=== PATIENT | female | born 2000 | race Caucasian/White ===

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

== ENCOUNTER → 2018-11-13 16:37 | Outpatient (CLI) | payer OTHER, SELFPAY ==
[2018-11-13 19:26] LABS: Chlamydia Trachomatis by PCR Negative (Negative); Neisserai gonorrhoeae by PCR Negative (Negative); Probe Check PASS; Sample Adequacy Control PASS; Specimen Processing Control PASS
== END ==
PROVIDERS: Visit Provider Obstetrics & Gynecology
DX: Z11.3 Encounter for screening for infections with a predominantly sexual mode of transmission (principal)
CPT/HCPCS: 87491; 87591

== ENCOUNTER → 2019-11-29 | Outpatient (CLI) | payer OTHER, SELFPAY ==
[2019-12-04 07:44] LABS: Chlamydia By Nucleic Acid AMP Negative (Negative)
[2019-12-04 16:03] LABS: HPV Reflexed? NOT INDICATED
[2019-12-10 22:11] LABS: Gonococcus By Nucleic Acid AMP Negative (Negative)
== END | disposition home or self-care (01) ==
LOC: LABSPEC 14:42
PROVIDERS: Visit Provider Obstetrics & Gynecology
DX: Z12.4 Encounter for screening for malignant neoplasm of cervix (principal); Z11.3 Encounter for screening for infections with a predominantly sexual mode of transmission
CPT/HCPCS: 87491; 87591; 88175; G0145

== ENCOUNTER → 2023-04-29 | Outpatient (CLI) | payer OTHER, SELFPAY ==
[2023-05-02 22:06] LABS: Chlamydia By Nucleic Acid AMP Negative (Negative); Gonococcus By Nucleic Acid AMP Negative (Negative)
[2023-05-09 22:58] LABS: HPV Reflexed? NOT INDICATED
== END | disposition home or self-care (01) ==
PROVIDERS: Referring Provider Registered Nurse; Visit Provider Registered Nurse
DX: Z34.90 Encounter for supervision of normal pregnancy, unspecified, unspecified trimester (principal)
CPT/HCPCS: 87086; 87491; 87591; 88175; G0145

== ENCOUNTER → 2023-05-24 | Outpatient (CLI) | payer OTHER, SELFPAY ==
[2023-05-24 14:55] LABS: Absolute Lymphocyte Count 2.11 X10^3/uL (0.83-4.51); Basophil# 0.02 X10^3/uL; Basophil% 0.3 % (0-1); Eosinophil# 0.03 X10^3/uL; Eosinophils% 0.4 % (0-5); Hematocrit 41.2 % (37-47); Hemoglobin 13.7 g/dL (12.0-15.0); Lymphocyte # 2.11 X10^3/ul (0.83-4.51); Lymphocyte % 31.6 % (19-41); Mean Corp Hgb Conc 33.3 g/dL (32-36); Mean Corpuscular Hgb 29.1 pg (27.0-32.0); Mean Corpuscular Volume 87.7 fL (81-99); Mean Platelet Vol. 11.2 fl (6.2-12.0); Monocyte# 0.53 X10^3/uL; Monocyte% 7.9 % (0-10); NRBC Flagged by Analyzer 0 % (0-5); Neutrophil # 3.99 X10^3/uL (2.7-7.7); Neutrophil % 59.8 % (47-70); Platelet Count 261 K/mm3 (150-450); RBC Distribution Width CV 12.4 % (11.6-14.6); RBC Distribution Width SD 39.5 fl (35.1-43.9); White Blood Count 6.7 K/mm3 (4.4-11.0)
[2023-05-24 16:11] LABS: HIV - WCH Non-Reactive (Nonreactive); Hepatitis B Surface Antigen Non-Reactive (Nonreactive); Hepatitis C Antibody Non-Reactive (Nonreactive); Rubella IgG Equiv (Nonreactive); Syphilis Antibodies Non-reactive
== END | disposition home or self-care (01) ==
LOC: LAB 13:15
PROVIDERS: Referring Provider Registered Nurse; Visit Provider Registered Nurse
DX: Z34.90 Encounter for supervision of normal pregnancy, unspecified, unspecified trimester (principal)
CPT/HCPCS: 36415; 85025; 86703; 86762; 86780; 86803; 86850; 86900; 86901; 87340

== ENCOUNTER → 2023-09-16 | Outpatient (CLI) | payer OTHER, SELFPAY ==
[2023-09-16 13:39] LABS: Absolute Lymphocyte Count 1.58 X10^3/uL (0.83-4.51); Absolute Neutrophil Count 6.1 X10^3/uL (2.0-7.7); Basophil# 0.02 X10^3/uL; Basophil% 0.2 % (0-1); Eosinophil# 0.02 X10^3/uL; Eosinophils% 0.2 % (0-5); Hematocrit 36.3 % (37-47); Lymphocyte # 1.58 X10^3/ul (0.83-4.51); Lymphocyte % 18.9 % (19-41); Mean Corp Hgb Conc 33.1 g/dL (32-36); Mean Corpuscular Hgb 30.6 pg (27.0-32.0); Mean Corpuscular Volume 92.6 fL (81-99); Mean Platelet Vol. 10.7 fl (6.2-12.0); NRBC Flagged by Analyzer 0 % (0-5); Neutrophil # 6.14 X10^3/uL (2.7-7.7); Neutrophil % 73.7 % (47-70); Platelet Count 233 K/mm3 (150-450); RBC Distribution Width CV 12.9 % (11.6-14.6); RBC Distribution Width SD 43.5 fl (35.1-43.9); Red Blood Count 3.92 M/mm3 (4.2-5.4); White Blood Count 8.3 K/mm3 (4.4-11.0)
[2023-09-16 14:01] LABS: Glucose Challenge Gest 1H 50g 149 mg/dL (70-140)
[2023-09-16 14:38] LABS: HIV - WCH Non-Reactive (Nonreactive); Syphilis Antibodies Non-reactive
== END | disposition home or self-care (01) ==
LOC: LAB 12:58
PROVIDERS: Referring Provider Nurse Practitioner Women's Health; Visit Provider Nurse Practitioner Women's Health
DX: Z34.90 Encounter for supervision of normal pregnancy, unspecified, unspecified trimester (principal); Z3A.24 24 weeks gestation of pregnancy
CPT/HCPCS: 36415; 82950; 85025; 86703; 86780

== ENCOUNTER → 2023-09-29 | Outpatient (CLI) | payer OTHER, SELFPAY ==
[2023-09-29 10:28] LABS: Bedside Glucose 78 mg/dL (74-106)
[2023-09-29 10:49] LABS: Glucose GTT-Gestation. Fasting 82 mg/dL (<105)
[2023-09-29 11:37] LABS: Glucose GTT-Gestational 1 Hr 128 mg/dL (<190)
[2023-09-29 13:23] LABS: Glucose GTT-Gestational 2 Hr 92 mg/dL (<165)
[2023-09-29 14:18] LABS: Glucose GTT-Gestational 3 Hr 57 L (<145)
== END | disposition home or self-care (01) ==
PROVIDERS: Referring Provider Nurse Practitioner Women's Health; Visit Provider Nurse Practitioner Women's Health
DX: Z13.1 Encounter for screening for diabetes mellitus (principal)
CPT/HCPCS: 36415; 82951; 82952; 82962

== ENCOUNTER → 2023-10-27 | Outpatient (CLI) | payer OTHER, SELFPAY | END | disposition home or self-care (01) | PROVIDERS: Referring Provider Advanced Practice Midwife; Visit Provider Advanced Practice Midwife | DX: B37.31 Acute candidiasis of vulva and vagina (principal) | CPT/HCPCS: 87070; 87205 ==

== ENCOUNTER → 2023-11-11 | Outpatient (CLI) | payer OTHER, SELFPAY | END | disposition home or self-care (01) | LOC: LABSPEC 17:04 | PROVIDERS: Referring Provider Registered Nurse; Visit Provider Registered Nurse | DX: Z34.02 Encounter for supervision of normal first pregnancy, second trimester (principal) | CPT/HCPCS: 87081 ==

== ENCOUNTER → 2023-11-15 | Outpatient (CLI) | payer OTHER, SELFPAY ==
--- NOTE | 2023-11-15 16:16 | US_ITS ---
STUDY: SECOND AND THIRD TRIMESTER OBSTETRICAL ULTRASOUND - LIMITED REASON FOR EXAM: Female, 23 years old oblique presentation LMP: Established due date 12/09/2023. PRIOR ULTRASOUND: No relevant prior comparison study available TECHNIQUE: Transabdominal TECHNICAL QUALITY: Adequate. FINDINGS: Single fetus is identified in the uterus in cephalic presentation. heart rate 133 bpm. Amniotic fluid index 12.93 cm. Maximum vertical pocket 6.8 cm. Placenta is anterior and appears intact. Several venous lakes noted. No previa. Cervical length not well visualized. Maternal ovaries not visualized. BIOMETRY: BPD: 9.04 cm: 36 weeks, 4 days HC: 32.57 cm: 36 weeks, 6 days AC: 34.43 cm: 38 weeks, 2 days FL: 7.11 cm: 36 weeks, 3 days Estimated weight: 3279 grams, +/- 492 grams, 81.07 percentile. US/OB Limited With Biometrics IMPRESSION: Single live intrauterine estimated gestational age 37 weeks 2 days based on composite measurements. Electronically Signed: Sima Coyle MD at 3:14 EDT ,
== END | disposition home or self-care (01) ==
LOC: OPUS 16:15 → US 16:18
PROVIDERS: Referring Provider Registered Nurse; Visit Provider Registered Nurse
DX: O32.2XX0 Maternal care for transverse and oblique lie, not applicable or unspecified (principal); Z3A.00 Weeks of gestation of pregnancy not specified
CPT/HCPCS: 76816

== ENCOUNTER 2023-12-04 03:20 | Inpatient (IN) | payer OTHER, SELFPAY ==
[2023-12-04] VITALS (23 sets, daily range): BP systolic 110–134; BP diastolic 58–83; PULSE 63–91; RESP 14–18; TEMP 36.3–37.4; O2SAT 82–99; BMI 38.9
[2023-12-04 04:11] LABS: Absolute Lymphocyte Count 2.04 X10^3/uL (0.83-4.51); Absolute Neutrophil Count 9.2 X10^3/uL (2.0-7.7); Basophil# 0.04 X10^3/uL; Basophil% 0.3 % (0-1); Eosinophil# 0.04 X10^3/uL; Eosinophils% 0.3 % (0-5); Hematocrit 38.8 % (37-47); Hemoglobin 12.7 g/dL (12.0-15.0); Lymphocyte # 2.04 X10^3/ul (0.83-4.51); Lymphocyte % 16.8 % (19-41); Mean Corp Hgb Conc 32.7 g/dL (32-36); Mean Corpuscular Hgb 30.8 pg (27.0-32.0); Mean Corpuscular Volume 94.2 fL (81-99); Mean Platelet Vol. 11.4 fl (6.2-12.0); Monocyte# 0.71 X10^3/uL; Monocyte% 5.9 % (0-10); NRBC Flagged by Analyzer 0 % (0-5); Neutrophil # 9.16 X10^3/uL (2.7-7.7); Neutrophil % 75.7 % (47-70); Platelet Count 202 K/mm3 (150-450); RBC Distribution Width CV 12.9 % (11.6-14.6); RBC Distribution Width SD 44.4 fl (35.1-43.9); Red Blood Count 4.12 M/mm3 (4.2-5.4); White Blood Count 12.1 K/mm3 (4.4-11.0)
[2023-12-04 05:09] LABS: Syphilis Antibodies Non-reactive
[2023-12-04] MEDS: fentaNYL 100 MCG/2 ML Ampul IV (06:02)
[2023-12-04] MEDS: 0.9% Saline Lock 10 ML Syringe IV (06:03)
[2023-12-04] MEDS: Oxytocin 15 Units/NS 250ml 15 UNITS/250 ML IV.SOLN 83 UNITS IV (07:30)
--- NOTE | 2023-12-04 08:18 | HP.PCM.OB_ITS ---
HPI - General General Date of Admission: 12/04/23 HPI Narrative ILDA LLANOS, is a 23 F who presents IAL regular ctx no vb lof admits good fm Maternal Data Information SARAH Calculator Estimated Delivery Date Method Current WG Current Estimate 12/09/23 Ultrasound #1 39w 2d Other Estimates 12/16/23 LMP (Certain) 38w 2d PFSH PFSH Medical History (Updated 12/04/23 @ 08:[address] Roseann Jett MD) Superficial varicosities Abnormal glucose affecting Recurrent UTI Home Medications ?Medication ?Instructions ?Recorded ?Last Taken ?Type multivit-min no.71-iron fum 28 1 cap PO DAILY 04/19/23 12/03/23 History mg-folate no.1 1 mg-dha 300 mg capsule (PNV-[place]) Allergy/AdvReac Type Severity Reaction Status Date / Time No Known Allergies Allergy Verified 12/04/23 03:42 Family History Grandmother Breast cancer, Onset Age: 45 Maternal Grandfather Cancer, Onset Age: 55 Paternal Father Hypertension Brain tumor (benign), Onset Age: 50 Surgical History Sontag teeth extracted History of appendectomy Social History adopted: No household members: significant other and other details: Lida son current occupational status: employed current occupation: [employer] Payable current occupational exposures/hazards: No pets and animals: Yes (Avoid litterbox) pets and animals: cat(s) and dog(s) history of recent travel: No sexually active: Yes Smoking Status: Never smoker alcohol intake: never substance use type: does not use well-balanced diet: daily or most days caffeine: No eating out: 1-3 times/week during the past year weight has: remained stable what type of physical activity do you participate in: none ki/jew: Judaism seatbelt use: always do you feel safe at home: Yes additional social history: Lida Sparks Danielanyjasbir- [employer]- [employer] History 1 Elective abortions Hx Para 0 Spontaneous abortions Hx # Term Pregnancies Ectopic pregnancies Hx # Pregnancies Multiple births # of living children Visit Details Expected Delivery Route/Plan Labor Preferences- CB/BF classes: encourage labor support person: jayson labor intervention preferences: [] pain management options preferred: minimal intervention, open to touch, massage, guided breathing, IA, hydrotherapy. cut cord/dad catch: yes : yes PP control planned: discussed discussed possible routes of delivery and associated risks: [] special requests: [] Plans Covid status: [] Flu vaccine: declined Tdap vaccine: declined Rhogam: na LARC form signed: yes movement and labor precautions reviewed. Problem list reviewed and updated with the most current plan of care details and appropriate orders placed. Relevant counseling for the gestational age provided. Continue routine care and follow up unless otherwise noted in visit notes/problem list details OB Flowsheet Initial Weight: Not Recorded Date -?-?-?--?-?-?-?-?-?-?-?-?- EGA Weight BP Urine Prot -?-?-?-?-?-?-?-?-?-?-?-?- Glucose FHR FuHt Pres Dilation -?-?-?-?-?-?-?-?-?-?-?-?- Effaced St Visit Note 04/29/23 -?-?-?-?-?-?-?-?-?-?-?-?- 8w 0d 179 lb 110/58 -?-?-?-?-?-?-?-?-?-?-?-?- 160 -?-?-?-?-?-?-?-?-?-?-?-?- LC- CRL NOT con with LMP 14.1 SARAH changed. LC- CRL NOT con with LMP 14. 1 SARAH changed. declines genetic screening. going to [place] tomorrow for a service trip 05/24/23 -?-?-?-?-?-?-?-?-?-?-?-?- 11w 4d 177 lb 4 oz 132/80 Nega tive -?-?-?-?-?-?-?-?-?-?-?-?- Negative 170 -?-?-?-?-?-?-?-?-?-?-?-?- kw- no vb/crampi ng. formal US ordered 06/22/23 -?-?-?-?-?-?-?-?-?-?-?-?- 15w 5d 180 lb 2 oz 109/69 Nega tive -?-?-?-?-?-?-?-?-?-?-?--?- Negative 156 -?-?-?-?-?-?-?-?-?-?-?-?- JV-lots of quest ions JV-lots of questions today. anatomy scan planned. informed to check insurance. 07/19/23 -?-?-?-?-?-?-?-?-?-?-?-?- 19w 4d 188 lb 4 oz 108/66 Nega tive -?-?-?-?-?-?-?-?-?-?-?-?- Negative 146 -?-?-?-?-?-?-?-?-?-?-?-?- MH-No VB. No flu tters yet. [facility] [facility] Denies concerns 08/23/23 -?-?-?-?-?-?-?-?-?-?-?-?- 24w 4d 204 lb 6 oz 104/68 Nega tive -?-?-?-?-?-?-?-?-?-?-?-?- Negative 148 -?-?-?-?-?-?-?-?-?-?-?-?- MH-No VB, LOF. G ood FM. [facility] 09/16/23 -?-?-?-?-?-?-?-?-?-?-?-?- 28w 0d 216 lb 4 oz 120/84 Nega tive -?-?-?-?-?-?-?-?-?-?-?-?- Negative 145 28 -?-?-?-?-?-?-?-?-?-?-?-?- LC- no vb/ctx/lo f. good fm. 28 week labs being obtain after this appointment. [facility] 09/29/23 -?-?-?-?-?-?-?-?-?-?-?-?- 29w 6d 214 lb 119/78 Negative -?-?-?-?-?-?-?-?-?-?-?-?- Negative 140 29 -?-?-?-?-?-?-?-?-?-?-?-?- KW- no vb/lof/ct x. good fm. passed 3 hour gct. 10/10/23 -?-?-?-?-?-?-?-?-?-?-?-?- 31w 3d 215 lb 8 oz 115/71 Nega tive -?-?-?-?-?-?-?-?-?-?-?-?- Negative 150 31 -?-?-?-?-?-?-?-?-?-?-?-?- JV- no lof, vagi nal bleeding, or dec fm. no complaints today. 10/27/23 -?-?-?-?-?-?-?-?-?-?-?-?- 33w 6d 222 lb 118/72 Negative -?-?-?-?-?-?-?-?-?-?-?-?- Negative 130 33 -?-?-?-?-?-?-?-?-?-?-?-?- kw-no lof/ctx/vb . good fm. concerns with increased vaginal discharge. culture done. rx sent for yeast infection 11/11/23 -?-?-?-?-?-?-?-?-?-?-?-?- 36w 0d 232 lb 131/82 Negative -?-?-?-?-?-?-?-?-?-?-?-?- Negative 150 36 Oblique -?-?-?-?-?-?-?-?-?-?-?-?- LC- no vb/ctx/lo f. good fm. oblique on leopolds. will obtain formal us with [facility] would desire version. LC- no vb/ctx/lof. good fm. oblique on leopolds. will obtain formal us with [facility] would desire version. gbs collected. 11/17/23 -?-?-?-?-?-?-?-?-?-?-?-?- 36w 6d 232 lb 2 oz 120/77 Nega tive -?-?-?--?-?-?-?-?-?-?-?-?- Negative 140 36 Cephalic -?-?-?-?-?-?-?-?-?-?-?-?- JV- JV- normal leander and vtx on ul trasound. no lof, vaginal bleeding, or dec fm. gbs neg. 11/23/23 -?-?-?-?-?-?-?-?-?-?-?-?- 37w 5d 236 lb 119/78 Negative -?-?-?-?-?-?-?-?-?-?-?-?- Negative 135 36 Cephalic 0 -?-?-?-?-?-?-?-?-?-?-?-?- SM- no vb lof go od fm no regular ctx SM- no vb lof good fm no reg ular ctx nl US last week 12/02/23 -?-?-?-?-?-?-?-?-?-?-?-?- 39w 0d 241 lb 132/83 Negative -?-?-?-?-?-?-?-?-?-?-?-?- Negative 162 37 Cephalic 0 -?-?-?-?-?-?-?-?-?-?-?-?- JV- no lof, vagi nal bleeding, or dec fm. vtx on ultrasound today. NST FHR Rate Baby A Baseline: 140 Variability:: Moderate Accelerations:: 15 x 15 Decelerations:: None NST Reactive:: Yes FHR Category:: Category I Uterine Activity:: q3-5 ROS Constitutional Constitutional: Reports systems reviewed and no addt'l complaints, except as documented ENT HEENT: Reports systems reviewed and no addt'l complaints, except as documented Cardiovascular Cardiovascular: Reports systems reviewed and no addt'l complaints, except as documented Respiratory/Chest Respiratory/Chest: Reports systems reviewed and no addt'l complaints, except as documented Gastrointestinal Gastrointestinal: Reports systems reviewed and no addt'l complaints, except as documented and nausea; Denies abdominal pain Genitourinary Genitourinary: Reports systems reviewed and no addt'l complaints, except as documented, contractions Details: present and frequency (regular ) and movement Details: present Musculoskeletal Musculoskeletal: Reports systems reviewed and no addt'l complaints, except as documented Integumentary Integumentary: Reports as per HPI Neurologic Neurologic: Reports systems reviewed and no addt'l complaints, except as documented Endocrine Endocrinology: Reports systems reviewed and no addt'l complaints, except as documented Vital Signs Vital Signs Vital Signs: 12/04/23 01:10 12/04/23 01:10 12/04/23 01:10 Temperature Temperature Source Pulse Rate 79 Respiratory Rate Blood Pressure 134/71 H BP Systolic 134 BP Diastolic 71 Pulse Ox 98 12/04/23 01:10 12/04/23 01:10 12/04/23 01:10 Temperature 97.8 F Temperature Source Temporal Pulse Rate Respiratory Rate 14 Blood Pressure BP Systolic BP Diastolic Pulse Ox 12/04/23 04:05 12/04/23 04:05 12/04/23 04:05 Temperature Temperature Source Temporal Pulse Rate 67 Respiratory Rate Blood Pressure 124/77 H BP Systolic 124 BP Diastolic 77 Pulse Ox 12/04/23 04:05 12/04/23 04:05 12/04/23 05:06 Temperature 97.7 F L Temperature Source Temporal Pulse Rate Respiratory Rate 16 Blood Pressure BP Systolic BP Diastolic Pulse Ox 12/04/23 05:06 12/04/23 05:06 12/04/23 05:07 Temperature 97.4 F L Temperature Source Pulse Rate Respiratory Rate 17 Blood Pressure 131/72 H BP Systolic 131 BP Diastolic 72 Pulse Ox 12/04/23 05:07 12/04/23 05:57 12/04/23 05:57 Temperature Temperature Source Pulse Rate 63 66 Respiratory Rate Blood Pressure 116/71 BP Systolic 116 BP Diastolic 71 Pulse Ox 12/04/23 05:57 12/04/23 05:57 12/04/23 07:27 Temperature 97.6 F L Temperature Source Pulse Rate Respiratory Rate 17 Blood Pressure 123/68 H BP Systolic 123 BP Diastolic 68 Pulse Ox 12/04/23 07:27 12/04/23 07:36 12/04/23 07:36 Temperature Temperature Source Pulse Rate 71 72 Respiratory Rate Blood Pressure BP Systolic BP Diastolic Pulse Ox 96 12/04/23 07:42 12/04/23 07:42 12/04/23 07:42 Temperature Temperature Source Pulse Rate 74 Respiratory Rate 18 Blood Pressure BP Systolic BP Diastolic Pulse Ox 95 12/04/23 07:42 12/04/23 07:43 12/04/23 07:43 Temperature 97.9 F Temperature Source Pulse Rate 80 Respiratory Rate Blood Pressure 118/83 H BP Systolic 118 BP Diastolic 83 Pulse Ox 12/04/23 07:57 12/04/23 07:57 12/04/23 08:12 Temperature Temperature Source Pulse Rate 74 Respiratory Rate Blood Pressure 117/72 118/73 BP Systolic 117 118 BP Diastolic 72 73 Pulse Ox 12/04/23 08:12 Temperature Temperature Source Pulse Rate 64 Respiratory Rate Blood Pressure BP Systolic BP Diastolic Pulse Ox Weight Weight: 241 lb 6.499 oz Body Mass Index (BMI) 38.9 Physical Exam Const alert, oriented x3 and healthy appearing Constitutional Narrative: uncomfortable with contractions HEENT normocephalic and moist oral mucous membranes Head and Scalp: atraumatic Neck full ROM, no lymphadenopathy, supple and thyroid normal General: trachea midline Thyroid: thyroid normal Lymph Lymphatic: no lymphadenopathy noted Chest inspection of chest normal Resp normal respiratory effort Cardio regular rate GI normal to inspection, nondistended, normoactive bowel sounds, soft to palpation and non-tender Inspection: gravid external exam normal Bimanual Exam - Vag & Uterus: uterus non-tender Manual OB Exam: estimated gestational size appropriate, presentation cephalic, dilated, effaced and station Extremity normal to inspection General Extremity: Negative for edema Skin no rashes or lesions noted Neuro deep tendon reflexes 2+ bilaterally Motor Exam: strength 5/5 throughout and clonus absent Psych mental status grossly normal Labs Labs Labs: Blood Type O POSITIVE Antibody Screen NEGATIVE Hct 38.8 % (37-47) Hgb 12.7 g/dL (12.0-15.0) Obstetrics Ultrasound Syphilis Total Ab Non-reactive Rubella IgG Antibody Equiv (Nonreactive) Hep Bs Antigen Non-Reactive (Nonreactive) Hepatitis C Antibody Non-Reactive (Nonreactive) Chlamydia DNA (AZAEL) Negative (Negative) N.gonorrhoeae DNA (AZAEL) Negative (Negative) HIV 1&2 Antibody Non-Reactive (Nonreactive) Glucose 1 Hr 50 gm 149 mg/dL (70-140) H Gest Glucose Tolerance MG/DL Assessment & Plan (1) Rubella non-immune status, antepartum: COMMENT: Equiv, presume nonimmune and enc pp MMR (2) Supervision of normal first : QUALIFIERS: Trimester: second trimester Qualified Code(s): Z34.02 - Encounter for supervision of normal first , second trimester COMMENT: PRR , SARAH 12/16/23, boy Yogesh Sparks (son [place]-5) (3) : QUALIFIERS: Weeks of gestation: 39 weeks Qualified Code(s): Z3A.39 - 39 weeks gestation of COMMENT: Neg GBS discussed genetic & carrier testing, AFP:Declines all (4) Abnormal glucose affecting : COMMENT: normal 3 hr. GTT (5) Active labor at term: PLAN: Plan Patient presents IAL. Pain management: none. GBS neg. Management of any complications: none I have reviewed the [facility] and made any clinically relevant updates.
--- NOTE | 2023-12-04 08:52 | OP.PCM_ITS ---
Assessment & Plan (1) Active labor at term: (2) Rubella non-immune status, antepartum: COMMENT: Equiv, presume nonimmune and enc pp MMR (3) Supervision of normal first : QUALIFIERS: Trimester: second trimester Qualified Code(s): Z34.02 - Encounter for supervision of normal first , second trimester COMMENT: PRR , SARAH 12/16/23, boy Yogesh Sparks (son [place]-5) (4) : QUALIFIERS: Weeks of gestation: 39 weeks Qualified Code(s): Z3A.39 - 39 weeks gestation of COMMENT: Neg GBS discussed genetic & carrier testing, AFP:Declines all (5) Abnormal glucose affecting : COMMENT: normal 3 hr. GTT (6) Vaginal delivery: COMMENT: SM IAL boy Yogesh Maternal Data Information SARAH Calculator Estimated Delivery Date Method Current WG Current Estimate 12/09/23 Ultrasound #1 39w 2d Other Estimates 12/16/23 LMP (Certain) 38w 2d Vaginal Delivery Operative Information Date of Procedure: 12/04/23 Pre-Operative Diagnosis: see a/p diagnoses Post-Operative Diagnosis: same Surgery / Procedure Performed: Spontaneous Vaginal Delivery Type of Anesthesia: None Special Medications: none Estimated Blood Loss: 200 Fluids Replaced: crystalloid Findings Description of Procedure: Patient began pushing and delivered the head in the EMIGDIO presentation. The head was delivered atraumatically . The anterior and posterior shoulders delivered without complication followed by the rest of the infant and the infant was placed on the maternal abdomen. Delayed cord clamping was employed for approximately 60 seconds. Cord was clamped and cut and gentle traction was applied to the cord and the placenta delivered spontaneously immediately following it was noted to be intact with three-vessel cord. The perineum and vagina were inspected and noted to have no laceration. EBL was 200 cc. Patient and tolerated delivery well. Amniotic Fluid Description: Clear Placental Delivery Description: Spontaneous Placenta Disposition: [facility] Cord Vessel Description: 3 Vessels Cord Entanglement: None Delayed Cord Clamping: Yes Post Vaginal Delivery Medications Given After Delivery: IV Pitocin Episiotomy Description: None Complication Complications: None Procedures Urinary/Genital [id number]: [id number] Vaginal Delivery [facility]
--- NOTE | 2023-12-04 08:55 | PCM.DC ---
Discharge Instructions Diet Discharge Diet: No restrictions Activity Discharge Activity: Return to Normal Activity, May Not Drive (while taking narcotic pain medications.) and May Shower May resume sexual activity in: 4-6 weeks Dressing / Incision Call your doctor if your incision/area has: Continuous Slow Oozing, Sudden Increased Bleeding, Increased Pain/ Swelling, Increased Redness and Foul Smelling Discharge Follow Up Care Please Follow Up With: Roseann Jett MD When: Call [phone] to make an appointment with your doctor in 6 weeks. If you had elevated blood pressure or 4th degree laceration, you will need to be seen in 2 weeks. Test Results: Test results from this visit will be discussed in further detail at your follow-up appointment, if applicable. Discharge Plan Admission Admit Date/Time: 12/04/23 03:20 Attending Provider: Roseann Jett Primary Care Provider: Care Physician,Tammy Primary Discharge Orders/Prescriptions Prescriptions: No Action PNV-[place] 28-1-300 mg capsule 1 cap PO DAILY Referrals / Follow Up: Care Physician,No Primary [Primary Care Provider] - Disposition Disposition (needs filled in before D/C Order can be placed): Home, Self Care
[2023-12-04] MEDS: Ibuprofen 600 MG Tablet PO ×2 (09:22→18:51)
[2023-12-05] VITALS (7 sets, daily range): BP systolic 118–130; BP diastolic 67–71; PULSE 74–85; RESP 16; TEMP 36.4–37.2; O2SAT 98
--- NOTE | 2023-12-05 08:10 | PN.OBGYN_ITS ---
Subjective Subjective Patient doing well without complaints. Tolerating PO. Ambulating and voiding without difficulty. Feeding well. Denies chest pain, shortness of breath, calf pain/swelling, fevers, chills, lightheadedness. Objective Data Objective Data Vital Signs: Vital Signs Temp Pulse Resp BP Pulse Ox O2 Del Method 99.0 F 74 16 129/69 H 97 Room Air 12/05/23 05:26 12/05/23 05:26 12/05/23 05:26 12/05/23 05:26 12/04/23 15:49 12/05/23 05:26 Oxygen Delivery Method Room Air Weight: 241 lb 6.499 oz Body Mass Index (BMI) 38.9 Intake & Output: Intake and Output for Last 24 Hours 12/03/23 12/04/23 12/05/23 23:59 23:59 23:59 Intake Total 250 / 250 Output Total 1200 / 1200 Balance -950 / -950 Lab / Micro Data Attestation: I reviewed the patient's lab results. 12/04/23 03:50 ROS Constitutional Constitutional: Reports systems reviewed and no addt'l complaints, except as documented; Denies anorexia or headache(s) Cardiovascular Cardiovascular: Reports systems reviewed and no addt'l complaints, except as documented; Denies dizziness, dyspnea, nausea or tachypnea Respiratory/Chest Respiratory/Chest: Reports systems reviewed and no addt'l complaints, except as documented; Denies cough, dyspnea, shortness of breath at rest or tachypnea Gastrointestinal Gastrointestinal: Reports systems reviewed and no addt'l complaints, except as documented; Denies abdominal pain, constipation or nausea Genitourinary Genitourinary: Reports systems reviewed and no addt'l complaints, except as documented; Denies burning urination, difficulty urinating, dysuria, urinary frequency or urinary incontinence Musculoskeletal Musculoskeletal: Reports systems reviewed and no addt'l complaints, except as documented Integumentary Integumentary: Reports systems reviewed and no addt'l complaints, except as documented Neurologic Neurologic: Reports systems reviewed and no addt'l complaints, except as documented; Denies abnormal speech, dizziness or headache(s) Psychiatric Psychiatric: Reports systems reviewed and no addt'l complaints, except as documented Endocrine Endocrinology: Reports systems reviewed and no addt'l complaints, except as documented Hematologic/Lymphatic Hematologic/Lymphatic: Reports systems reviewed and no addt'l complaints, except as documented Physical Exam Const alert, oriented x3 and no apparent distress Neck full ROM Resp normal respiratory effort, normal air movement and no retractions Effort and Inspection: able to speak in complete sentences and symmetric chest movement GI soft to palpation Bladder / Kidney Exam: bladder normal to palpation Uterus Palpation: uterus fundus firm Extremity normal to inspection and full ROM Psych mental status grossly normal, thought process normal and cooperative Assessment & Plan (1) Vaginal delivery: COMMENT: SM IAL boy Yogesh PLAN: s/p PPD # 1 1. routine post delivery care 2. breast feeding- support given 3. rh positive 4. rubella immune 5. Discharge home (2) Active labor at term: (3) Rubella non-immune status, antepartum: COMMENT: Equiv, presume nonimmune and enc pp MMR (4) Supervision of normal first : QUALIFIERS: Trimester: second trimester Qualified Code(s): Z34.02 - Encounter for supervision of normal first , second trimester COMMENT: PRR , SARAH 12/16/23, terri Sparks (son [place]-5) (5) : QUALIFIERS: Weeks of gestation: 39 weeks Qualified Code(s): Z 3A.39 - 39 weeks gestation of COMMENT: Neg GBS discussed genetic & carrier testing, AFP:Declines all (6) Abnormal glucose affecting : COMMENT: normal 3 hr. GTT Charges/Coding Multi Select Codes Urinary/Genital Urinary/Genital CPT Codes: No Charge
[2023-12-05] MEDS: Ibuprofen 600 MG Tablet PO (11:17)
== END 2023-12-05 16:10 | disposition home or self-care (01) | DRG 807 ==
LOC: WPOUT 03:27 → WP 03:27
PROVIDERS: Admitting Provider Obstetrics & Gynecology; Visit Provider Obstetrics & Gynecology
DX: O80 Encounter for full-term uncomplicated delivery (principal); Z37.0 Single live birth; Z3A.39 39 weeks gestation of pregnancy
CPT/HCPCS: 59025; 59050; 85025; 86780; 86850; 86900; 86901; 99221; A4216; G0378